=== PATIENT | female | born 1985 | race Caucasian/White ===

== ENCOUNTER 2017-03-25 16:00 | Emergency (ER) | payer MEDICAID ==
[2017-03-25 16:05] VITALS: BP 113/69; BMI 25.8
--- NOTE | 2017-03-25 16:55 | DR.GENAD ---
HPI - PCP Primary Care Physician: GERMAINE - HPI Comment HPI Comment: PAIN WORSE TODAY AND LYMPH GLAND IS GETTING BIGGER. NO FEVER. - Complaint/Symptoms Chief Complaint Doctors Comments: PAIN RIGHT THROAT AND PAINFUL LYMPH NODE RIGHT SIDE TIMES 3 DAYS, Chief Complaint:: PATIENT STATED THAT SHE HAS HAD A FEVER AND SORE THROAT AND HER RIGHT LYMP NODE IS SWOLLEN - Nurses notes reviewed Nurses Notes Review: Yes - Source History Provided: Patient - Mode of Arrival Mode of Arrival: Ambulatory - Timing Onset of Chief Complaint: 03/23/17 Came on: Suddenly - Duration Duration: Constant Duration: Days - Severity Severity: Moderate PMH - PMH Past Medical History: Yes Past Medical History: Anemia, SVT Past Medical History Comment: [employer]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 Past Surgical History: Yes Surgical History: SHRIMP PEELER Surgery Past Surgical History Comment: CARDI ABLASION - Family History History of Family Medical Conditions: Yes Family Medical History: Cancer - Social History Does patient currently use any type of tobacco product: No Have you used tobacco products in the last 12 months: No Type of Tobacco Use: None Does any household member use tobacco: No Alcohol Use: None Do you use any recreational Drugs:: No Lives With: Family Lives Where: Home - infectious screening In the last 2 months have you had wt loss of >10#?: NO Have you had fever, night sweats or hemotysis?: No Have you traveled outside the country in the last 6 months?: No Isolation: Standard ROS - Review of Systems Constitutional: Fever Eyes: No Symptoms Reported ENTM: Throat Pain. negative: Ear Pain, Nose Discharge, Nose Congestion Respiratoy: No Symptoms Reported Cardiovascular: No Symptoms Reported Gastrointestinal/Abdominal: No Symptoms Reported Genitourinary: No Symptoms Reported Neurological: No Symptoms Reported Musculoskeletal: No Symptoms Reported Integumentary: No Symptoms Reported Hematologic/Lymphatic: No Symptoms Reported Endocrine: No Symptoms Reported All Other Systems: Reviewed and Negative PE - Vital Signs Vitals: Temperature 97.8 F Pulse Rate 96 Respiratory Rate 20 Blood Pressure 113/69 O2 Sat by Pulse Oximetry 98 - General Limitations: No Limitations General Appearance: Alert - Head Head Exam: Normal Inspection - Eyes Eye exam: Normal Appearance - ENT ENT Exam: Normal External Ear Exam External Ear Exam: Normal External Inspection TM/Canal Exam: Bilateral Normal Nose Exam: Normal Nose Exam Mouth Exam: Normal Inspection Throat Exam: Tonsillar Erythema (RT SIDE), Tonsillomegaly (RT SIDE). negative: Tonsillar Exudate - Neck Neck Exam: Trachea Midline, Lymphadenopathy - Chest Chest Inspection: Symmetric Chest Wall Rise - Respiratory Respiratory Exam: Normal Lung Sounds Bilat Respiratory Exam: Bilateral Clear to Auscultation - Cardiovascular Cardiovascular Exam: Regular Rate, Normal Rhythm, Normal Heart Sounds - Abdominal Exam Abdominal Exam: Normal Bowel Sounds, Soft. negative: Tenderness - Extremities Extremities Exam: Normal Inspection - Back Back Exam: Normal Inspection - Neurologic Neurological Exam: Alert, Oriented X3 - Psychiatric Psychiatric Exam: Normal Affect, Normal Mood - Skin Skin Exam: Normal Color MDM - Differential Diagnosis Differential Diagnosis: SORE THROAT, CERVICAL ADENITIS Course - Treatment Treatment: SEE ORDERS. - Education/Counseling Education/Counseling: Patient, Education Educated On: Treatment, Diagnosis, Needs for Follow Up ROR - Labs Reviewed Laboratory Results Reviewed?: Yes Result Diagrams: 03/25/17 17:43 Laboratory: WBC 8.0 X10^3/uL (3.6-10.0) 03/25/17 17:43 RBC 4.26 X10^6/uL (3.5-5.4) 03/25/17 17:43 Hgb 9.6 g/dL (12.0-16.0) L 03/25/17 17:43 Hct 30.5 % (36.0-47.0) L 03/25/17 17:43 MCV 71.6 fL (80.0-100.0) L 03/25/17 17:43 MCH 22.6 pg (27.0-34.0) L 03/25/17 17:43 MCHC 31.6 g/dL (33.0-35.0) L 03/25/17 17:43 RDW 16.7 % (11.6-16.5) H 03/25/17 17:43 Plt Count 302 X10^3/uL (150.0-450.0) 03/25/17 17:43 Plt Count Comment Adequate (ADEQUATE) 03/25/17 17:43 MPV 8.8 fL (7.4-11.0) 03/25/17 17:43 Neut % 74.4 % (42.0-75.0) 03/25/17 17:43 Lymph % 17.7 % (21.0-51.0) L 03/25/17 17:43 [place] % 6.2 % (0.0-13.0) 03/25/17 17:43 Eos % 1.0 % (0.9-2.9) 03/25/17 17:43 Baso % 0.7 % (0.2-1.0) 03/25/17 17:43 Neut # 5.9 x10^3/uL (2.2-4.8) H 03/25/17 17:43 Lymph # 1.4 X10^3/uL (1.3-2.9) 03/25/17 17:43 [place] # 0.5 x10^3/uL (0.3-0.8) 03/25/17 17:43 Eos # 0.1 x10^3/uL (0.0-0.2) 03/25/17 17:43 Baso # 0.1 X10^3/uL (0.0-0.1) 03/25/17 17:43 Absolute Nucleated RBC 0.0 /100WBC 03/25/17 17:43 Plt Morphology Comment Normal (NORMAL) 03/25/17 17:43 RBC Morphology Abnormal (NORMAL) A 03/25/17 17:43 Hypochromasia 1+ A 03/25/17 17:43 Monoscreen Negative (NEGATIVE) 03/25/17 17:43 Streptococcus Screen Negative (NEGATIVE) 03/25/17 17:03 - Diagnosis Discharge Problem: Sore throat, Cervical adenitis - Discharge Plan Condition: Stable Prescriptions: Acetaminophen with Codeine [Tylenol/Codeine #3 300-30 mg] 1 tab PO Q4-6H PRN # 15 tab PRN Reason: Pain Amoxicillin [Amoxil 875 mg] 875 mg PO Q12H #20 tab Ibuprofen [MOTRIN TAB 600 MG *] 600 mg PO TID PRN #20 tab PRN Reason: Pain/Inflammation - Follow ups/Referrals Follow ups/Referrals: HERMANN HERRON [Primary Care Provider] - 3 days - Instructions Instructions: Tonsillitis, Gxew-[id number], Lymphadenopathy Additional Instructions: RETURN TO ED IF WORSE.
[2017-03-25 17:52] LABS: BASOPHILS # (AUTO) 0.1 X10^3/uL (0.0-0.1); BASOPHILS % (AUTO) 0.7 % (0.2-1.0); EOSINOPHILS # (AUTO) 0.1 x10^3/uL (0.0-0.2); HEMATOCRIT 30.5 % (36.0-47.0); HEMOGLOBIN 9.6 g/dL (12.0-16.0); LYMPHOCYTES # (AUTO) 1.4 X10^3/uL (1.3-2.9); LYMPHOCYTES % (AUTO) 17.7 % (21.0-51.0); MEAN CORPUSCULAR HEMOGLOBIN 22.6 pg (27.0-34.0); MEAN CORPUSCULAR HGB CONC 31.6 g/dL (33.0-35.0); MEAN CORPUSCULAR VOLUME 71.6 fL (80.0-100.0); MEAN PLATELET VOLUME 8.8 fL (7.4-11.0); MONOCYTES # (AUTO) 0.5 x10^3/uL (0.3-0.8); MONOCYTES % (AUTO) 6.2 % (0.0-13.0); NEUTROPHILS # (AUTO) 5.9 x10^3/uL (2.2-4.8); NEUTROPHILS % (AUTO) 74.4 % (42.0-75.0); PLATELET COUNT 302 X10^3/uL (150.0-450.0); RED BLOOD COUNT 4.26 X10^6/uL (3.5-5.4); RED CELL DISTRIBUTION WIDTH 16.7 % (11.6-16.5)
[2017-03-25 18:07] LABS: PLATELET MORPHOLOGY COMMENT NORMAL (NORMAL)
[2017-03-25 18:08] LABS: HYPOCHROMASIA 1+
[2017-03-25 18:19] LABS: MONOTEST NEGATIVE (NEGATIVE)
== END 2017-03-25 18:35 | disposition home or self-care (01) ==
LOC: ER 16:12
DX: I88.9 Nonspecific lymphadenitis, unspecified (principal); J02.9 Acute pharyngitis, unspecified
CPT/HCPCS: 36415; 85025; 86308; 87070; 87880; 99282

== ENCOUNTER → 2017-10-11 | Outpatient (CLI) | payer MEDICAID ==
[2017-10-11 13:33] LABS: BASOPHILS % (AUTO) 0.6 % (0.2-1.0); EOSINOPHILS # (AUTO) 0.5 x10^3/uL (0.0-0.2); EOSINOPHILS % (AUTO) 5.8 % (0.9-2.9); HEMATOCRIT 31.6 % (36.0-47.0); HEMOGLOBIN 10.1 g/dL (12.0-16.0); LYMPHOCYTES % (AUTO) 11.6 % (21.0-51.0); MEAN CORPUSCULAR HEMOGLOBIN 22.2 pg (27.0-34.0); MEAN CORPUSCULAR VOLUME 69.3 fL (80.0-100.0); MONOCYTES # (AUTO) 0.3 x10^3/uL (0.3-0.8); MONOCYTES % (AUTO) 3.3 % (0.0-13.0); NEUTROPHILS # (AUTO) 6.8 x10^3/uL (2.2-4.8); NEUTROPHILS % (AUTO) 78.7 % (42.0-75.0); PLATELET COUNT 371 X10^3/uL (150.0-450.0); RED BLOOD COUNT 4.55 X10^6/uL (3.5-5.4); RED CELL DISTRIBUTION WIDTH 20.5 % (11.6-16.5); WHITE BLOOD COUNT 8.7 X10^3/uL (3.6-10.0)
[2017-10-11 13:43] LABS: ALANINE AMINOTRANSFERASE 37 Units/L (12-78); ALBUMIN 3.3 g/dL (3.4-5.0); ALKALINE PHOSPHATASE 166 Units/L (46-116); ASPARTATE AMINO TRANSFERASE 26 Units/L (15-37); BLOOD UREA NITROGEN 15 mg/dL (7-18); CALCIUM 8.9 mg/dL (8.5-10.1); CARBON DIOXIDE 25.7 mmol/L (21-32); CHLORIDE 105 mmol/L (98-107); CHOL/HDL RATIO 4.3 (0.0-5.0); CHOLESTEROL 209 mg/dL (0-200); COR CA(FOR HYPOALB) 9.5 mg/dL (8.5-10.1); COR NA(FOR HYPERGLY) 139 mmol/L (136-145); CREATININE 0.73 mg/dL (0.55-1.02); HDL CHOLESTEROL 49 mg/dL (40-60); SODIUM 139 mmol/L (136-145); TOTAL PROTEIN 7.4 g/dL (6.4-8.2); TRIGLYCERIDES 110 mg/dL (0-150); eGFR BLACK RACES > 60 (>60); eGFR NON BLACK RACES > 60 (>60)
[2017-10-11 13:53] LABS: ANISOCYTOSIS 1+; HYPOCHROMASIA 1+; MICROCYTOSIS 1+; PLATELET MORPHOLOGY COMMENT NORMAL (NORMAL)
--- NOTE | 2017-10-11 13:58 | RAD ---
HISTORY: Neck and low back pain Study: Three views cervical spine Comparison: None Findings: There is no acute fracture or subluxation. No prevertebral soft tissue swelling is identified. No lavon tructive osseous lesions are seen. The lung apices are clear. IMPRESSION: Negative cervical spine examination. Reported By:
--- NOTE | 2017-10-11 14:01 | RAD ---
HISTORY: Low back pain Study: Five views lumbar spine Comparison: None Findings: There is no acute fracture or subluxation. Mild levoscoliosis is noted. There is mild thoracolumbar d iscogenic degenerative disease with Schmorl node formation and minimal lower lumbar facet arthropathy . No destructive osseous lesions are seen. Surrounding soft tissues are unremarkable. IMPRESSION: Mild lumbar spondylosis and scoliosis. Reported By:
[2017-10-11 14:22] LABS: ERYTHROCYTE SEDIMENTATION RATE 18 MM/HOUR (0-20)
== END | disposition home or self-care (01) | DRG 552 ==
LOC: LAB 13:03
PROVIDERS: ATTEND Nurse Practitioner Family
DX: M54.2 Cervicalgia (principal); M54.5 Low back pain; Z86.79 Personal history of other diseases of the circulatory system; M47.896 Other spondylosis, lumbar region; M41.86 Other forms of scoliosis, lumbar region
CPT/HCPCS: 36415; 72040; 72110; 80053; 80061; 85025; 85652; 86140

== ENCOUNTER → 2017-10-25 | Outpatient (CLI) | payer MEDICAID ==
--- NOTE | 2017-10-25 16:10 | MRI ---
MRI SPINE LUMBAR WITHOUT CONTRAST CLINICAL HISTORY: 32-year-old female with scoliosis and low back pain. COMPARISON: Radiographs of lumbar spine 10/11/2017. Technique: Multiplanar, multisequence MRI images of the lumbar spine were obtained without the admin istration of contrast. FINDINGS: The most caudad, fully-formed intervertebral disc will be labeled L5-S1 for the purpose of this dictation and in keeping with prior imaging. Straightening of lumbar lordosis is imaged. Alignme nt is maintained. There is preservation of vertebral body and disc space height. Vertebral marrow and intervertebral disc signal are normal. Cord signal is normal. The conus medullaris is normal in sign al characteristics and morphology and terminates at the L1-2 level. T11-T12: No central canal or neural foraminal stenosis. T12-L1: No central canal or neural foraminal stenosis. L1-L2: No central canal or neural foraminal stenosis. L2-L3: No central canal or neural foraminal stenosis. L3-L4: Small symmetric disc bulge with mild facet arthropathy without central canal or neural foramin al stenosis. L4-L5: Moderate symmetric disc bulge with mild facet arthropathy without central canal or neural fora abhi stenosis. L5-S1: Small symmetric disc bulge without central canal or neural foraminal stenosis. Paraspinous soft tissues are unremarkable. IMPRESSION: Minimal multilevel degenerative change without central canal or neural foraminal stenosis as describe d above. Reported By:
== END ==
LOC: RAD 13:42
PROVIDERS: ATTEND Nurse Practitioner Family
DX: M41.9 Scoliosis, unspecified (principal)
CPT/HCPCS: 72148